=== PATIENT | male | born 1980 | race Caucasian/White ===

== ENCOUNTER → 2019-04-13 | Emergency (ER) | payer BC, OTHER ==
[~2019-04-13] VITALS: Ht 182.9 cm; Wt 99.8 kg
[2019-04-13 20:39] VITALS: BP_SYST 138
--- NOTE | 2019-04-13 20:45 | NUR ---
Patient to ER bed 2 to gown for evaluation. Side rails up.
--- NOTE | 2019-04-13 20:52 | NUR ---
Dr. Adorno bedside for Pt eval
--- NOTE | 2019-04-13 21:12 | NUR ---
Pt taken to X Ray in stable condition
--- NOTE | 2019-04-13 21:20 | NUR ---
Pt back from Radiology well tolerated
== END | disposition still patient (30) ==
LOC: SED 20:30
DX: S63.91XA Sprain of unspecified part of right wrist and hand, initial encounter (principal); X58.XXXA Exposure to other specified factors, initial encounter; Y93.43 Activity, gymnastics; Y99.8 Other external cause status; Y92.39 Other specified sports and athletic area as the place of occurrence of the external cause
CPT/HCPCS: 99283